=== PATIENT | female | born 1955 | race Caucasian/White ===

== ENCOUNTER 2024-09-17 08:37 | Day surgery (SDC) | payer MEDICARE, OTHER ==
[2024-09-17] MEDS: Lactated Ringers 1,000 ML IV SCH (09:00)
[2024-09-17] MEDS ORDERED: Propofol 200 MG/20 ML SDV ONE (10:01)
[2024-09-17] MEDS ORDERED: Lidocaine 2% 5 ML SDV ONE (10:01)
[2024-09-17] MEDS ORDERED: ePHEDrine 50 MG/ML SDV ONE (10:43)
[2024-09-17 14:07] VITALS: BP 121/60; PULSE 56
== END 2024-09-17 11:30 | disposition home or self-care (01) ==
LOC: MW.SDS 08:37
PROVIDERS: ATTEND Surgery
DX: Z12.11 Encounter for screening for malignant neoplasm of colon (principal); K57.30 Diverticulosis of large intestine without perforation or abscess without bleeding; J45.40 Moderate persistent asthma, uncomplicated; I11.0 Hypertensive heart disease with heart failure; I50.20 Unspecified systolic (congestive) heart failure; E03.9 Hypothyroidism, unspecified; Z87.891 Personal history of nicotine dependence; Z79.899 Other long term (current) drug therapy; Z91.041 Radiographic dye allergy status; Z91.048 Other nonmedicinal substance allergy status
CPT/HCPCS: G0121; J2704; J7120; J3490